=== PATIENT | female | born 1980 | race Caucasian/White ===

== ENCOUNTER 2016-10-14 15:31 | Emergency (ER) | payer OTHER ==
[~2016-10-14 15:31] MED LIST: LEXAPRO PO; TRAZODONE
== END 2016-10-14 15:35 | disposition left against medical advice (07) ==
LOC: CED 15:31
DX: S20.319A Abrasion of unspecified front wall of thorax, initial encounter (principal); S19.9XXA Unspecified injury of neck, initial encounter; V49.40XA Driver injured in collision with unspecified motor vehicles in traffic accident, initial encounter; Y93.89 Activity, other specified; Y92.410 Unspecified street and highway as the place of occurrence of the external cause
CPT/HCPCS: 99283